=== PATIENT | female | born 1955 | race Caucasian/White ===

== ENCOUNTER → 2018-08-01 | Outpatient (CLI) | payer OTHER ==
[~2018-08-01] MED LIST: AMO500 PO; CELE-1 PO; GUALA600 PO; IBU800 PO; LEVO100T95 PO; LEVOTHYROXINE; LIN600 PO; PER PO; SALSP; [UNRECOGNIZED DRUG - OTHER]
--- NOTE | 2018-08-01 10:09 | RADIOLOGY IMAGING REPORT ---
FACILITY: [facility] PATIENT NAME: MAYTE VILLA : [id number] MR: [id number] V: [id number] EXAM DATE: ORDERING PHYSICIAN: CHRIST KATE TECHNOLOGIST: Kerry Rivera PROCEDURE:BILATERAL DIGITAL SCREENING MAMMOGRAM WITH CAD ASSISTED INTERPRETATION & 3D TOMOSYNTHESIS COMPARISON:Prior mammograms 11/18/15, 06/04/14, 04/08/13, 03/06/12. INDICATIONS:SCREENING FINDINGS: The breasts are almost entirely fatty. The parenchymal pattern has remained stable allowing for difference in mammographic technique & patient positioning. DIAGNOSTIC CATEGORY 1--NEGATIVE. RECOMMENDATIONS: ROUTINE MAMMOGRAM AND CLINICAL EVALUATION. IMPRESSION: BIRADS 1: Negative. No significant abnormality is seen. Dictated by: Evangelina Morales M.D. on 08/01/2018 at 8:56 Transcribed by: CHEL on 08/01/2018 at 9:33 Approved by: Evangelina Morales M.D. on 08/01/2018 at 10:08 [facility]
== END ==
LOC: MAMO 00:46
PROVIDERS: ATTEND Nurse Practitioner Psychiatric/Mental Health
DX: Z12.31 Encounter for screening mammogram for malignant neoplasm of breast (principal)
CPT/HCPCS: 77063; 77067

== ENCOUNTER 2019-02-14 14:23 | Emergency (ER) | payer OTHER ==
--- NOTE | 2019-02-14 14:33 | ER Report ---
History and Physical Time Seen By MD: 14:29 Hx. of Stated Complaint: PATIENT REPORTS SWELLING AND A LUMP ON THE RIGHT SIDE OF THE NECK AND SHOULDER THAT STARTED YESTERDAY. WENT TO URGENT CARE AND WAS TOLD TO COME HERE. HPI/ROS CHIEF COMPLAINT: lump right side of neck HISTORY OF PRESENT ILLNESS: PT has been sick with nasal congestion and sinus pressure. PT felt it was most likely allergies but could be early sinus infection. PT today noticed a lump base of neck above clavicle that is tender. Pt went went to urgent care and was sent to ED. PT denies neck pain accept some tenderness at the lump. REVIEW OF SYSTEMS: Constitutional: No fever, no chills. Eyes: No discharge. ENT: No sore throat. + nasal congestion, + sinus pressure Cardiovascular: No chest pain, no palpitations. Respiratory: No cough, no shortness of breath. Gastrointestinal: No abdominal pain, no vomiting. Genitourinary: No hematuria. Musculoskeletal: No back pain, + lump on right side of neck Skin: No rashes. Neurological: No headache. Allergies: Coded Allergies: erythromycin base (Verified Adverse Reaction, Mild, NAUSEA AND VOMITING, 06/04/11) Home Meds Reported Medications Guaifenesin (Guaifenesin) 600 Mg Tabcr, 600 MG PO BID, 0 Refills GET OVER THE COUNTER 06/10/11 Linezolid (Zyvox) 600 Mg Tab, 600 MG PO Q12H for 7 Days, 0 Refills TAKE TWICE A DAY UNTIL COMPLETE 06/10/11 Saline ([place] Nasal [place]) 45 Ml [place], 0 NA PRN, 0 Refills ONE SPRAY IN EACH NOSTRIL DESIRED 06/10/11 Celecoxib (Celebrex) 200 Mg Capsule, 200 MG PO BID, #14 0 Refills Take one capsule by mouth twice a day. 06/10/11 Oxycodone/Acetaminophen (OXYCODONE/ACETAMINOPHEN 5MG/325 MG) 5 Mg/325 Mg Tab, 1 - 2 TAB PO Q4H PRN, #20 0 Refills Take 1-2 tablets by mouth every 4 hours as needed for pain. 06/10/11 Levothyroxine Sodium (Levothyroxine Sodium) 100 Mcg Tablet, 100 MCG PO QAM, 0 Refills 06/10/11 Past Medical/Surgical History Pmhx: uterine fibroids, htn, hypothyroid Pshx: hyster, Reviewed Nurses Notes: Yes Old Medical Records Reviewed: Yes Hx Smoking: Yes (30 YEARS AGO) Hx Substance Use Disorder: No Hx Alcohol Use: Yes Constitutional Vital Sign - Last 24 Hours 02/14/19 14:27 Temp 98.1 Pulse 68 Resp 16 B/P (MAP) 153/68 Pulse Ox 89 O2 Delivery Room Air Physical Exam General Appearance: The patient is alert, has no immediate need for airway protection and no signs of toxicity. Eyes: Pupils equal and round no pallor or injection, EOMI ENT: no pharyngeal erythema or exudates, Mucous membranes are moist, TM are nl b/l, + maxillary sinus tender Respiratory: There are no retractions, lungs are clear to auscultation. Cardiovascular: Regular rate and rhythm. pulses are equal and symmetrical Neurological: Cranial nerves II-XII grossly intact, no sensory or motor loss lymph: + palpable lymph nodes at cervical chaing Skin: Warm and dry, no rashes. Musculoskeletal: Neck is supple non tender, no vertebral tenderness Extremities are nontender, nonswollen and have full range of motion. DIFFERENTIAL DIAGNOSIS: After history and physical exam differential diagnosis was considered for lymphadenopathy, vascular aneurysm, abscess Medical Decision Making ED Course/Re-evaluation ED Course Offered pt US vs CT. I did explain that a CT would be more information between blood vessels, infection, lymphnodes but pt prefers US due to radation. Will call in US 02/14/2019 2:59:15 pm Ultrasound arrived and will begin study. 02/14/2019 3:50:23 pm PTs US did not show anything acute at this time. Discussed with pt. Will treat for early sinusitis. PT will need to return if area becomes more painful or larger. Decision to Disposition Date: Feb 14, 2019 Decision to Disposition Time: 15:50 Depart Departure Latest Vital Signs Vital Signs Date Time Temp Pulse Resp B/P (MAP) Pulse Ox O2 Delivery O2 Flow Rate FiO2 02/14/19 14:27 98.1 68 16 153/68 89 Room Air Impression: Primary Impression: Sinusitis, acute Additional Impression: Lump in neck Condition: Improved Disposition: HOME OR SELF-CARE Referrals: CHRIST KATE [employer]NAGER (PCP) New Scripts Amoxicillin/Pot Clav 875-125 Mg Tab (AUGMENTIN 875-125 TABLET) 1 Each Tablet 1 TAB PO Q12H, #14 TAB Prov: FERNANDO GRIMES DO 02/14/19 Patient Instructions: Sinusitis (ED) Additional Instructions: Augmentin twice a day until finished. Follow up with your doctor or return to the emergency room if your lump does not improve over the next 48 hours. Problem Qualifiers Primary Impression: Sinusitis, acute Sinusitis location: unspecified location FERNANDO GRIMES DO Feb 14, 2019 14:33
--- NOTE | 2019-02-14 15:50 | RADIOLOGY IMAGING REPORT ---
FACILITY: [facility] PATIENT NAME: Sherine Rees : 1955 MR: [id number] V: [id number] EXAM DATE: ORDERING PHYSICIAN: FERNANDO GRIMES TECHNOLOGIST: Location: [facility] Patient: Sherine Rees : 1955 Visit/Account:[id number] Date of Sevice: 02/14/2019 SOFT TISSUE HEAD NECK INDICATION: Lump above the right clavicle at the base and neck. COMPARISON: None available FINDINGS: Ultrasound evaluation of the right supraclavicular region and neck area in the area of co ncern. The area concern shows no enlarged lymph nodes or masses. No fluid or fluid collection. No abn ormality seen to the subcutaneous tissues. Comparison left side shows no focal abnormality. IMPRESSION: No focal abnormality to the area concern in the right supraclavicular/neck region. Report Dictated By: Jose Austin at 02/14/2019 3:40 PM Report E-Signed By: Jose Austin at 02/14/2019 3:42 PM WSN:[id number]
[2019-02-14] MEDS ORDERED: AMOX-559 PO (15:56)
[2019-02-14 16:02] VITALS: BP 136/72
== END 2019-02-14 16:03 | disposition home or self-care (01) ==
LOC: ER 14:36
DX: J01.90 Acute sinusitis, unspecified (principal)
CPT/HCPCS: 76536; 99284